=== PATIENT | female | born 1995 | race Caucasian/White ===

== ENCOUNTER 2024-09-20 08:07 | Emergency (ER) | payer BC ==
[~2024-09-20] VITALS: Ht 175.3 cm; Wt 96.1 kg
[2024-09-20 08:09] VITALS: BP 139/90; PULSE 87; RESP 14; TEMP 98; O2SAT 100
--- NOTE | 2024-09-20 08:43 | Physician Documentation ---
HPI ~ General Chief Complaint: Tooth Problem Stated Complaint: TOOTH PAIN Time Seen by MD: 08:43 History of Present Illness HPI Comment 29-year-old female presenting with dental pain. She tells me she has a long history of trouble with a left lower posterior tooth, says it is broken and has been intermittently bothering her for the last many months or even 1 year. Recently, the pain is worsened. She states it is a sharp shooting nerve type pain. She also has increased swelling around her lower jaw and sometimes the pain radiates into her neck. She has been taking occasional ibuprofen and using hydrogen peroxide swishes which does help. She has been trying to get into a dentist but has not been able to get an appointment. She denies any fevers or other infectious type symptoms. No significant difficulty swallowing. Medication Reconciliation Allergies: Coded Allergies: No Known Allergies (Unverified , 09/20/24) Scheduled Amox Tr/Potassium Clavulanate (Augmentin 875-125 Tablet), 1 TAB PO Q12H Review of Systems Constitutional: Denies: fever ENT: Reports: mouth pain; Denies: throat pain, throat swelling Physical Exam Vital Signs: Temperature: 98.0, Heart Rate: 87, Respiratory Rate: 14, BP: 139/90, Pulse Oximetry: 100, Weight: 96.100 Oxygen Flow Rate: 0 Physical Exam General: This is a healthy and overall well-appearing young female, partner at bedside HEENT: Atraumatic, oropharynx is moist. Generally poor dentition. In the left lower posterior jaw, there is a tooth with significant caries, possibly broken. She is quite tender in this region. No significant surrounding swelling at the base of the tooth, no evidence of a periapical abscess. On external palpation of the jaw, the patient does have some tenderness on palpation around the lower jaw as well as some mild swelling around the lower jaw and lateral neck. Heart: Regular rate and rhythm, normal-appearing peripheral perfusion Lungs: normal work of breathing, normal oxygen saturation on room air Neuro: Alert and oriented, no focal deficits Psychiatric: Calm and cooperative with exam Progress Results/Orders Results/Orders Completed Orders - PAUL JENKINS MD Amox Tr/Potassium Clavulanate (Augmentin (09/20/24 08:55) Medications Received in ER Medications (Trade) Dose Ordered Sig/Akhil Route PRN Reason Start Time Stop Time Status Last Admin Dose Admin (Augmentin 875-125mg tablet) 1 tab ONCE ONCE PO 09/20/24 08:55 09/20/24 08:56 DC 09/20/24 09:04 1 TAB Vital Signs 09/20/24 08:09 Temp 98.0 Pulse 87 Resp 14 B/P (MAP) 139/90 Pulse Ox 100 O2 Flow Rate 0 Medical Decision Making Differential Dx:Considerations: Include: Facial Cellulitis, Periapical abscess, Peridontal abscess, Tooth Fracture Additional Comment The patient presented with dental pain. On exam she does have evidence of a tooth with significant caries and likely mild surrounding infection. No periapical abscess requiring drainage. No significant deep space neck infection or throat swelling. No other acute concerns. She will be discharged with a course of antibiotics and symptomatic treatment with anti-inflammatories. She was encouraged to follow up with a dentist, or return if she has significantly worsening symptoms. Departure Time of Disposition: 08:55 Disposition: 01 HOME / SELF CARE / HOMELESS Impression: Primary Impression: Dental infection Condition: Improved Discharge Instructions: Dental Pain Referrals: NO PRIMARY CARE PROVIDER (PCP) Prescriptions Amox Tr/Potassium Clavulanate (Augmentin 875-125 Tablet) 1 Each Tablet 1 TAB PO Q12H for 7 Days, #14 TAB Prov: PAUL JENKINS MD 09/20/24 Comments Please make an appointment with a dentist as soon as possible, including getting on a cancellation list For pain, please take ibuprofen and Tylenol regularly. You can take ibuprofen 600 mg 3 to 4 times a day for the next 1 week. You can also at the same time take Tylenol either 650 mg 4 times a day or 1000 mg 3 times a day for the next 1 week. Education Educated: Patient, Family Educated regarding: diagnosis, treatment, need for follow up Signature Scribe Signature: hilda Attestation: PAUL Spencer MD September 20, 2024 08:43
[2024-09-20] MEDS ORDERED: AMOX-117 PO (09:02)
[2024-09-20] MEDS: amox tr/potassium clavulanate 875/125mg TAB PO ONE (09:04)
== END 2024-09-20 09:20 | disposition home or self-care (01) ==
LOC: ER 08:07
DX: K04.7 Periapical abscess without sinus (principal)
CPT/HCPCS: 99283